=== PATIENT | male | born 1965 | race African-American/Black ===

== ENCOUNTER 2017-09-27 11:05 | Emergency (ER) | payer OTHER ==
[2017-09-27 11:16] VITALS: BMI 22.2
--- NOTE | 2017-09-27 11:36 | PDOC ---
History of Present Illness - General Chief Complaint: Pain Stated Complaint: ABD PAIN, LAB VARIANCE (PCP SENT) Time Seen by Provider: 09/27/17 11:35 Past History - Past Medical History Allergies/Adverse Reactions: Allergies Allergy/AdvReac Type Severity Reaction Status Date / Time No Known Allergies Allergy Verified 09/27/17 11:16 COPD: No GI Disorders: Yes (PANCREATITIS, NON ALCOHOLIC) - Suicide/Smoking/Psychosocial Hx Smoking History: Never smoked Hx Alcohol Use: Yes (SOCIAL) Drug/Substance Use Hx: No Substance Use Type: None *Physical Exam - Vital Signs Last Vital Signs Temp Pulse Resp BP Pulse Ox 98.1 F 74 20 145/93 100 09/27/17 11:13 09/27/17 11:13 09/27/17 11:13 09/27/17 11:13 09/27/17 11:13 *DC/Admit/Observation/Transfer - Referrals - Patient Instructions - Post Discharge Activity - Attestations Physician Attestion: 09/27/17 11:36 I, Dr. Jair Chew, attest that this document has been prepared under my direction and personally reviewed by me in its entirety. I further attest, that it accurately reflects all work, treatment, procedures and medical decision -making performed by me.
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
[2017-09-27 12:07] LABS: BASOPHIL 0.5 % (0-2.0); EOSINOPHIL 1.1 % (0-4.5); MCH 28.2 pg (25.7-33.7); MCHC 34.3 g/dl (32.0-35.9); MEAN CELL VOLUME 82.1 fl (80-96); MEAN PLT VOLUME 7.6 fl (7.5-11.1); NEUTROPHILS 58.4 % (42.8-82.8); PLATELET COUNT 265 K/MM3 (134-434); RDW 14.5 % (11.9-15.9); WHITE BLOOD COUNT 10.1 K/mm3 (4.0-10.0)
[2017-09-27 12:36] LABS: ALBUMIN 3.7 g/dl (3.4-5.0); ANION GAP 5 (8-16); CALCIUM 9.4 mg/dL (8.5-10.1); CO2 32 mmol/L (21-32); CREATININE 0.9 mg/dL (0.7-1.3); GLUCOSE,RANDOM 84 mg/dL (74-106); SGPT/ALT 29 U/L (12-78)
[2017-09-27 12:38] LABS: ALK PHOS 54 U/L (45-117); BILIRUBIN,TOTAL 0.4 mg/dL (0.2-1.0); TOT PROT 8.2 g/dl (6.4-8.2)
[2017-09-27] MEDS ORDERED: SODIUM CHLORIDE 1,000 ML IV STA (12:47)
--- NOTE | 2017-09-27 12:53 | PDOC ---
Attending Attestation - Resident Resident Name: Juan Anthony - ED Attending Attestation I have performed the following: I have examined & evaluated the patient, The case was reviewed & discussed with the resident, I agree w/resident's findings & plan, Exceptions are as noted - HPI HPI: 09/27/17 12:47 Epigastric Pain/ Hx of pancreatitis, feels the same - Physicial Exam PE: 09/27/17 12:48 VSS/ Abdomen soft and benign - Medical Decision Making 09/27/17 12:[address] Anthony's Assessment assessment and plan
[2017-09-27 13:54] LABS: SGOT/AST 20 U/L (15-37)
[2017-09-27 14:42] VITALS: BP 114/72; PULSE 80; TEMP 0
== END 2017-09-27 14:42 | disposition home or self-care (01) ==
LOC: JER 11:05
PROC: 3E0337Z Introduction of Electrolytic and Water Balance Substance into Peripheral Vein, Percutaneous Approach (ICD-10-PCS; principal; 2017-09-27)
DX: K85.80 Other acute pancreatitis without necrosis or infection (principal)
CPT/HCPCS: 36415; 80053; 83690; 85025; 99282-25